=== PATIENT | female | born 1970 | race Two or more races ===

== ENCOUNTER 2022-07-27 08:26 | Outpatient (OUT) | payer MEDICARE, MEDICAID, SELFPAY ==
--- NOTE | 2022-07-27 08:43 | XR_ITS ---
The [address] [address] Patient Name: DAX GARSIA MRN: [id number] date: 1970 Sex: F Assigned [facility] Current Patient Location: [facility] Accession/Order Number: [id number] Exam Date: 07/27/2022 10:05 Report Date: 07/27/2022 10:46 At the request of: TRISTAN KULKARNI Procedure: XR chest 2V EXAM: XR chest 2V HISTORY: pre op exam/ CHF COMPARISON: None. TECHNIQUE: PA and lateral views of the chest. FINDINGS: The cardiomediastinal silhouette is normal. No focal consolidation is identified. There is no pneumothorax. No pleural effusion is noted. The osseous structures are intact. IMPRESSION: No acute cardiopulmonary process. Electronically authenticated by: EMERITA DONG Date: 07/27/2022 10:46
--- NOTE | 2022-07-27 08:43 | ECG_ITS ---
The [facility] Test Date: 2022-07-27 Pat Name: Jaye Gaines Department: Room: - Gender: Female Lead Project Engineer: : 1970 Requested By: TRISTAN KULKARNI Order Number: [id number] Reading MD: ROSA JIANG Measurements Intervals [place] Rate: 74 P: 61 CO: 200 QRS: 9 QRSD: 85 T: 53 QT: 407 QTc: 453 Interpretive Statements SINUS RHYTHM POSSIBLE LEFT ATRIAL ENLARGEMENT [-0.1mV P WAVE IN V1/V2] LOW QRS VOLTAGE IN PRECORDIAL LEADS [QRS DEFLECTION < 1.0 mV IN CHEST LEADS] POSSIBLE RIGHT VENTRICULAR CONDUCTION DELAY [RSR (QR) IN V1/V2] PROBABLE INFERIOR MYOCARDIAL INFARCTION [35 ms Q WAVE IN II/aVF], PROBABLY OLD ANTEROSEPTAL MYOCARDIAL INFARCTION [40+ ms Q WAVE IN V1-V4], OF INDETERMINATE AGE No previous ECG available for comparison Electronically Signed On 07-28-2022 6:52:21 EDT by ROSA JIANG
--- NOTE | 2022-07-27 09:43 | P.GSHP_ITS ---
History of Present Illness History of Present Illness Chief complaint: PAT visit Narrative: Patient presents for preadmission testing. The patient states she had no period for over one year, and then suddenly had vaginal bleeding. She states the bleeding has now subsided. She denies abdominal pain, nausea, vomiting, fever, or any other complaints. Review of Systems ROS Narrative REVIEW OF SYSTEMS: Negative except as stated in HPI, ten or more systems reviewed. Constitutional: No fever , chills, weakness ENT: No sore throat or epistaxis Cardiovascular: No edema, chest pain, palpitations, or activity intolerance Respiratory: No shortness of breath, cough, or wheezing Musculoskeletal: No joint pain or swelling Gastrointestinal: No abdominal pain, constipation, diarrhea, or vomiting Genitourinary: No dysuria or hematuria Neurological: No numbness, tingling, weakness, or headache Psychiatric: No mood changes [facility] Medical History (Updated 07/27/22 @ 09:21 by Dacia Adrian NP) Surgical History (Updated 07/27/22 @ 09:20 by Dacia Adrian NP) Family History (Updated 07/27/22 @ 09:20 by Dacia Adrian NP) Other Family history of diabetes mellitus Family history of heart disease Family history of hypertension Family history of stroke Social History (Updated 07/27/22 @ 09:10 by Dacia Adrian NP) Within the past year, how often did you have a drink containing alcohol: never Score interpretation: A score less than 3 is consistent with normal alcohol consumption. Smoking status: Never smoker Non-prescribed substance use: denies use Highest level of school completed/degree received: some college, no degree Meds Home Medications and Allergies Home Medications Medication Instructions Recorded Confirmed Type aspirin 81 mg tablet,delayed 81 mg PO DAILY 07/27/22 07/27/22 History release (Adult Aspirin Regimen) atorvastatin 20 mg tablet mg 07/27/22 History brimonidine 0.15 % eye drops drp ophthalmic (eye) 07/27/22 History dorzolamide 22.3 mg-timolol 6.8 ophthalmic (eye) 07/27/22 History mg/mL eye drops (Cosopt) fluticasone propionate 50 intranasal 07/27/22 History mcg/actuation nasal spray,suspension glimepiride 4 mg tablet mg 07/27/22 History lisinopril 10 mg tablet mg 07/27/22 History metformin 500 mg tablet,extended mg PO 07/27/22 History release 24 hr metoprolol succinate 50 mg mg PO 07/27/22 History tablet,extended release 24 hr omeprazole 20 mg capsule,delayed mg 07/27/22 History release prasugrel 10 mg tablet mg 07/27/22 History semaglutide 0.25 mg or 0.5 mg (2 mg subcut 07/27/22 History mg/1.5 mL) subcutaneous pen injector (Ozempic) Allergies Allergy/AdvReac Type Severity Reaction Status Date / Time No Known Drug Allergies Allergy Verified 07/27/22 09:02 Exam Narrative Exam Narrative: Constitutional: Awake, alert, comfortable, well-appearing, nontoxic, interactive, vital signs as charted Head: Normocephalic, atraumatic Neck: Supple, normal appearance, normal range of motion, no meningeal signs, no lymphadenopathy Respiratory: No respiratory distress, breath sounds clear Cardiovascular: Regular rate and rhythm, strong and regular heart tones Abdomen: Nontender, normal bowel sounds, soft, no CVA tenderness Musculoskeletal: Normal gait, no swelling or edema Skin: No rashes or induration, no lesions, only visible skin inspected Neuro: No neurological deficits, normal sensation Psychiatric: Oriented ?3, normal affect Assessment and Plan Assessment and Plan (1) Post-menopausal bleeding: Plan D and C, hysteroscopy, possible Myosure scheduled with Dr. Tijerina 08/05/2022.
[2022-07-27 09:49] LABS: Basophils Percent Auto 0.4 % (0.2-2.0); Eosinophils Absolute Auto 0.5 10^3/uL (0.0-0.7); Eosinophils Percent Auto 6.5 % (0.9-7.0); Hematocrit 38.4 % (36.0-48.0); Hemoglobin 11.6 g/dL (12.0-16.0); Immature Granulocytes Abs Auto 0.01 10^3/uL (0.00-0.03); Immature Granulocytes Pct Auto 0.1 % (0.0-0.5); Lymphocytes Absolute Auto 2.3 10^3/uL (1.2-3.8); Lymphocytes Percent Auto 29.5 % (20.5-60.0); Mean Corpuscular HGB Conc 30.2 g/dL (29.9-35.2); Mean Corpuscular Hemoglobin 24.7 pg (26.7-34.0); Mean Corpuscular Volume 81.7 fL (81.0-99.0); Mean Platelet Volume 10.1 fL (9.5-13.5); Monocytes Absolute Auto 0.5 10^3/uL (0.3-0.8); Monocytes Percent Auto 6.5 % (1.7-12.0); Neutrophils Absolute Auto 4.4 10^3/uL (1.4-6.5); Platelet Count 298 10^3/uL (150-450); Red Cell Distribution Width 13.6 % (11.0-15.0); White Blood Count 7.7 10^3/uL (4.0-11.0)
[2022-07-27 09:56] LABS: Anion Gap 15.3; BUN Creatinine Ratio 20.4; Calcium 8.7 mg/dL (8.5-10.1); Carbon Dioxide 25.5 mmol/L (21.0-32.0); Chloride 103 mmol/L (98-107); Estimated GFR (African America >60 (>=60); Estimated GFR (Non-African Ame >60 (>=60); Glucose 236 mg/dL (74-106); Potassium 4.8 mmol/L (3.5-5.1); Sodium 139 mmol/L (136-145)
[2022-07-27 12:47] LABS: INR 0.97; Partial Thromboplastin Time 25.3 sec (22.3-36.2); Prothrombin Time 10.3 sec (9.0-11.6)
== END 2022-07-27 08:27 ==
PROVIDERS: Obstetrics & Gynecology; PCP Nurse Practitioner Family
DX: Z01.810 Encounter for preprocedural cardiovascular examination (principal); Z01.812 Encounter for preprocedural laboratory examination; N95.0 Postmenopausal bleeding; E11.9 Type 2 diabetes mellitus without complications; Z79.01 Long term (current) use of anticoagulants
CPT/HCPCS: 36415; 71046; 80048; 85025; 85610; 85730; 93005; G0463

== ENCOUNTER 2022-08-23 06:06 | Day surgery (SDC) | payer MEDICARE, MEDICAID, SELFPAY ==
[2022-07-27 09:12] VITALS: BP 100/72; PULSE 76; RESP 16; TEMP 36.4; O2SAT 95; BMI 28.7
[2022-08-23] VITALS (8 sets, daily range): BP systolic 107–131; BP diastolic 69–90; PULSE 77–83; RESP 10–16; TEMP 36.1; O2SAT 93–100; BMI 29.1
[2022-08-23 06:19] LABS: Basophils Percent Auto 0.4 % (0.2-2.0); Eosinophils Absolute Auto 0.4 10^3/uL (0.0-0.7); Eosinophils Percent Auto 5.2 % (0.9-7.0); Hematocrit 33.5 % (36.0-48.0); Hemoglobin 10.4 g/dL (12.0-16.0); Immature Granulocytes Abs Auto 0.03 10^3/uL (0.00-0.03); Immature Granulocytes Pct Auto 0.4 % (0.0-0.5); Lymphocytes Absolute Auto 2.3 10^3/uL (1.2-3.8); Lymphocytes Percent Auto 32.2 % (20.5-60.0); Mean Corpuscular Hemoglobin 25.5 pg (26.7-34.0); Mean Corpuscular Volume 82.1 fL (81.0-99.0); Mean Platelet Volume 9.5 fL (9.5-13.5); Monocytes Absolute Auto 0.6 10^3/uL (0.3-0.8); Monocytes Percent Auto 8.3 % (1.7-12.0); Neutrophils Absolute Auto 3.8 10^3/uL (1.4-6.5); Neutrophils Percent Auto 53.5 % (43.0-75.0); Platelet Count 266 10^3/uL (150-450); Red Blood Count 4.08 10^6/uL (4.20-5.40); White Blood Count 7.2 10^3/uL (4.0-11.0)
[2022-08-23 06:27] LABS: Glucometer 117 mg/dL (74-106)
[2022-08-23 06:44] LABS: HCG Quantitative <1 mIU/mL
[2022-08-23] MEDS: SCOPOLAMINE 1 EACH PATCH.TD.3 1 PATCH TD (07:08)
[2022-08-23] MEDS: LACTATED RINGER'S SOLUTION 1,000 ML 50 ML IV ×2 (07:09→07:14)
--- NOTE | 2022-08-23 08:22 | PM.ONB ---
Brief Operative Note Date of procedure: 08/23/22 Pre-op diagnosis: thickened endometrium, pmb Post-op diagnosis: same Procedure: PROCEDURE: The patient was taken back to the Operating Room where she was prepped and draped in normal sterile fashion after being placed under general anesthesia without difficulty. She was also placed in the dorsal lithotomy position. A weighted speculum was placed in the patient's vagina. The anterior lip of the cervix was identified and grasped with a single tooth tenaculum. The patient's uterus was then sounded roughly to [ 9 ] cm. The patient was then gently dilated using Hegar dilators. The hysteroscope was passed through the patient's cervix into the uterus. Both ostia were identified. slightlythickened appearing endometrium. No gross evidence of polyps, fibroids or malignancy. Sharp currettage was peformed The hysteroscope was then removed from the patient's uterus. The endometrial curettings were sent out to pathology. The single tooth tenaculum was then removed from the patient's anterior lip of the cervix where excellent hemostasis was noted. All instruments were removed from the patient's vagina. Anesthesia: GETA Surgeon: Howard Tijerina Estimated blood loss (mL): 5 Pathology: other (endometrial currettings) Condition: stable Disposition: PACU
--- NOTE | 2022-08-23 08:44 | PC.NURSE ---
Peripad dry and intact
--- NOTE | 2022-08-23 09:33 | PC.NURSE ---
Up to bathroom and voided without difficultly pink tinged urine; peripad dry
--- NOTE | 2022-08-23 10:51 | SUR.OPER ---
Patient straight cathed with 16 fr red rubber for 100ml of clear yellow urine
== END 2022-08-23 09:35 | disposition home or self-care (01) ==
PROVIDERS: PCP Nurse Practitioner Family; Visit Provider Obstetrics & Gynecology
PROC: (CPT 952; principal; 2022-08-23 07:30)
DX: R93.89 Abnormal findings on diagnostic imaging of other specified body structures (principal); N95.0 Postmenopausal bleeding; E11.9 Type 2 diabetes mellitus without complications; I50.9 Heart failure, unspecified; Z79.82 Long term (current) use of aspirin; Z79.899 Other long term (current) drug therapy; Z79.84 Long term (current) use of oral hypoglycemic drugs
CPT/HCPCS: 58558; 36415; 82948; 84702; 85025; 88305; J2704